=== PATIENT | male | born 1955 | race Caucasian/White ===

== ENCOUNTER 2016-05-19 | Outpatient (CLI) | payer MEDICAID | END 2016-05-19 16:02 | disposition critical access hospital (66) | CPT/HCPCS: A0425; A0429 ==

== ENCOUNTER 2016-05-19 16:28 | Emergency (ER) | payer MEDICAID ==
[2016-05-19] MEDS ORDERED: DEXAMETHASONE 10 MG/ML VIAL PO STA (17:33)
[2016-05-19] MEDS ORDERED: AZITHROMYCIN 250 MG TABLET PO STA (17:35)
[2016-05-19] MEDS ORDERED: levoFLOXacin 250 MG TABLET PO STA (17:36)
[2016-05-19] MEDS ORDERED: DEXAMETHASONE 10 MG/ML VIAL ONE (17:44)
[2016-05-19] MEDS ORDERED: CHERRY SYRUP 10 ML UDC PO ONE (17:44)
[2016-05-19] MEDS ORDERED: levoFLOXacin 250 MG TABLET PO ONE (17:44)
== END 2016-05-19 17:58 | disposition home or self-care (01) ==
DX: J18.9 Pneumonia, unspecified organism (principal); J44.9 Chronic obstructive pulmonary disease, unspecified; J45.909 Unspecified asthma, uncomplicated; I10 Essential (primary) hypertension; Z87.891 Personal history of nicotine dependence
CPT/HCPCS: 71020; 99282; 99284; A9270

== ENCOUNTER 2016-08-09 16:46 | Outpatient (CLI) | payer MEDICAID | END 2016-08-09 16:47 | disposition critical access hospital (66) | DX: R51 Headache (principal) | CPT/HCPCS: A0425; A0427 ==

== ENCOUNTER 2016-08-09 16:57 | Emergency (ER) | payer MEDICAID ==
[2016-08-09] MEDS ORDERED: HYDROmorphone 1 MG/ML SYRINGE IVP STA (17:28)
[2016-08-09] MEDS ORDERED: methylPREDNISolone SUCCINATE 125 MG/2 ML VIAL IVP STA (17:28)
[2016-08-09] MEDS ORDERED: IPRATROPIUM/ALBUTEROL 3 ML NEB INH STA (17:28)
[2016-08-09] MEDS ORDERED: IPRATROPIUM/ALBUTEROL 3 ML NEB INH ONE (17:31)
[2016-08-09] MEDS ORDERED: methylPREDNISolone SUCCINATE 125 MG/2 ML VIAL IVP ONE (17:36)
[2016-08-09] MEDS ORDERED: HYDROmorphone 1 MG/ML SYRINGE ONE (17:36)
[2016-08-09] MEDS ORDERED: LORazepam 2 MG/ML SYRINGE IVP STA (18:58)
[2016-08-09] MEDS ORDERED: LORazepam 2 MG/ML SYRINGE ONE (19:00)
[2016-08-09] MEDS ORDERED: IOPAMIDOL-300 100 ML VIAL IVP ONE (20:09)
[2016-08-09] MEDS ORDERED: AZITHROMYCIN 250 MG TABLET PO STA (21:33)
[2016-08-09] MEDS ORDERED: AZITHROMYCIN 250 MG TABLET PO ONE (21:35)
[2016-08-10] MEDS ORDERED: MAGNESIUM SULFATE 2 GRAM 50 ML IV ONE (21:30)
== END 2016-08-09 23:10 | disposition home or self-care (01) ==
DX: J44.1 Chronic obstructive pulmonary disease with (acute) exacerbation (principal); J45.909 Unspecified asthma, uncomplicated; R51 Headache; I10 Essential (primary) hypertension; B19.20 Unspecified viral hepatitis C without hepatic coma; R91.8 Other nonspecific abnormal finding of lung field; K21.9 Gastro-esophageal reflux disease without esophagitis; Z86.73 Personal history of transient ischemic attack (TIA), and cerebral infarction without residual deficits; Z87.11 Personal history of peptic ulcer disease; Z87.891 Personal history of nicotine dependence
CPT/HCPCS: 70450; 71010; 71275; 80053; 83690; 83880; 84484; 85025; 85379; 93005; 93010; 94640; 96374; 96375; 99284; 99285; A9270; J1170; J2060; J7620; Q9967

== ENCOUNTER 2016-08-10 16:06 | Outpatient (CLI) | payer MEDICAID | END 2016-08-10 16:07 | disposition critical access hospital (66) | DX: R06.9 Unspecified abnormalities of breathing (principal) | CPT/HCPCS: A0425; A0427 ==

== ENCOUNTER 2016-08-10 16:27 | Inpatient (IN) | payer MEDICAID ==
[2016-08-10] MEDS ORDERED: ALBUTEROL NEB 2.5 MG/3 ML INH STA (16:31)
[2016-08-10] MEDS ORDERED: methylPREDNISolone SUCCINATE 125 MG/2 ML VIAL IVP STA (16:31)
[2016-08-10] MEDS ORDERED: ALBUTEROL NEB 2.5 MG/3 ML INH ONE ×2 (16:39→19:14)
[2016-08-10] MEDS ORDERED: methylPREDNISolone SUCCINATE 125 MG/2 ML VIAL IVP ONE (16:45)
[2016-08-10] MEDS ORDERED: MORPHINE 10 MG/ML VIAL IVP STA (17:26)
[2016-08-10] MEDS ORDERED: ACETAMINOPHEN 325 MG TABLET PO PRN ×2 (17:27→17:36)
[2016-08-10] MEDS ORDERED: ONDANSETRON ODT 4 MG TABLET TL PRN (17:27)
[2016-08-10] MEDS ORDERED: diphenhydrAMINE 25 MG CAPSULE PO PRN (17:36)
[2016-08-10] MEDS ORDERED: MAGNESIUM HYDROXIDE 2,400 MG/30 ML UDC PO PRN (17:36)
[2016-08-10] MEDS ORDERED: PANTOPRAZOLE 40 MG TABLET PO SCH (18:00)
[2016-08-10] MEDS ORDERED: IPRATROPIUM/ALBUTEROL RESPIMAT INHALER INH SCH (18:00)
[2016-08-10] MEDS ORDERED: MORPHINE 2 MG/ML SYRINGE IVP ONE (18:30)
[2016-08-10] MEDS: IPRATROPIUM/ALBUTEROL 3 ML NEB INH SCH ×2 (18:43→23:13)
[2016-08-10] MEDS ORDERED: ALBUTEROL NEB 2.5 MG/3 ML INH PRN (19:08)
[2016-08-10] MEDS: SODIUM CHLORIDE FLUSH 0.9% 10 ML SYRINGE IVP SCH (19:10)
[2016-08-10] MEDS: SODIUM CHLORIDE 0.45% 1,000 ML IV SCH (19:10)
[2016-08-10] MEDS ORDERED: MAGNESIUM SULFATE 1 GM in SODIUM CHLORIDE 0.9% 50 ML IV SCH (19:39)
[2016-08-10] MEDS: ALBUTEROL NEB 2.5 MG/3 ML INH PRN (20:37)
[2016-08-10] MEDS ORDERED: DOXYCYCLINE INJ 100 MG in SODIUM CHLORIDE 0.9% MINIBAG 100 ML IV SCH (21:00)
[2016-08-10] MEDS: MORPHINE 2 MG/ML SYRINGE IVP PRN (21:07)
[2016-08-10] MEDS: QUEtiapine 25 MG TABLET PO SCH (21:07)
[2016-08-10] MEDS: SENNA 8.6 MG TABLET PO SCH (21:35)
[2016-08-10] MEDS: traZODone 50 MG TABLET PO SCH (21:35)
[2016-08-10] MEDS: cefTRIAXone 2 GM in SODIUM CHLORIDE 0.9% MINIBAG 100 ML IV SCH (21:35)
[2016-08-10] MEDS: GABAPENTIN 300 MG CAPSULE PO SCH (21:35)
[2016-08-10] MEDS: methylPREDNISolone SUCCINATE 125 MG/2 ML VIAL IVP SCH (21:36)
[2016-08-10] MEDS ORDERED: methylPREDNISolone SUCCINATE 40 MG/ML VIAL IVP SCH (22:00)
[2016-08-10] MEDS: LORazepam 2 MG/ML SYRINGE IVP PRN (22:36)
[2016-08-10] MEDS: AZITHROMYCIN INJ 500 MG in SODIUM CHLORIDE 0.9% 250 ML IV SCH (23:10)
[2016-08-11] MEDS: ALBUTEROL NEB 2.5 MG/3 ML INH PRN (01:31)
[2016-08-11] MEDS: MORPHINE 2 MG/ML SYRINGE IVP PRN ×4 (01:48→18:02)
[2016-08-11] MEDS: LORazepam 2 MG/ML SYRINGE IVP PRN ×4 (02:03→20:30)
[2016-08-11] MEDS: IPRATROPIUM/ALBUTEROL 3 ML NEB INH SCH ×6 (04:51→21:30)
[2016-08-11] MEDS: SODIUM CHLORIDE 0.45% 1,000 ML IV SCH ×3 (05:06→18:03)
[2016-08-11] MEDS: methylPREDNISolone SUCCINATE 125 MG/2 ML VIAL IVP SCH ×3 (06:02→22:29)
[2016-08-11] MEDS: PANTOPRAZOLE 40 MG VIAL IVP SCH (06:08)
[2016-08-11] MEDS: SENNA 8.6 MG TABLET PO SCH ×4 (06:09→21:24)
[2016-08-11] MEDS: SODIUM CHLORIDE FLUSH 0.9% 10 ML SYRINGE IVP SCH ×2 (07:48→13:59)
[2016-08-11] MEDS: ENOXAPARIN 40 MG/0.4 ML SYRINGE SUBQ SCH (08:47)
[2016-08-11] MEDS: QUEtiapine 25 MG TABLET PO SCH ×2 (08:48→21:23)
[2016-08-11] MEDS: GABAPENTIN 300 MG CAPSULE PO SCH ×3 (08:48→21:23)
[2016-08-11] MEDS: CHOLECALCIFEROL 1,000 UNIT TABLET PO SCH (08:49)
[2016-08-11] MEDS: FOLIC ACID 1 MG TABLET PO SCH (08:49)
[2016-08-11] MEDS: CETIRIZINE 10 MG TABLET PO SCH (08:50)
[2016-08-11] MEDS: MONTELUKAST 10 MG TABLET PO SCH (08:50)
[2016-08-11] MEDS: CHLORHEXIDINE GLUCONATE 15 ML UDC PO SCH ×2 (08:50→21:20)
[2016-08-11] MEDS: METOPROLOL SUCCINATE 25 MG TABLET PO SCH (08:50)
[2016-08-11] MEDS: cefTRIAXone 2 GM in SODIUM CHLORIDE 0.9% MINIBAG 100 ML IV SCH (08:51)
[2016-08-11] MEDS: POLYETHYLENE GLYCOL 3350 17 GM PACKET PO SCH (09:38)
[2016-08-11] MEDS: PARoxetine 10 MG TABLET PO SCH (09:38)
[2016-08-11] MEDS: SODIUM CHLORIDE FLUSH 0.9% 10 ML SYRINGE IVP PRN (13:59)
[2016-08-11] MEDS: AZITHROMYCIN INJ 500 MG in SODIUM CHLORIDE 0.9% 250 ML IV SCH (21:19)
[2016-08-11] MEDS: traZODone 50 MG TABLET PO SCH (21:22)
[2016-08-12] MEDS: LORazepam 2 MG/ML SYRINGE IVP PRN ×2 (00:48→04:17)
[2016-08-12] MEDS: IPRATROPIUM/ALBUTEROL 3 ML NEB INH SCH ×6 (01:30→21:30)
[2016-08-12] MEDS: SODIUM CHLORIDE FLUSH 0.9% 10 ML SYRINGE IVP SCH ×4 (01:55→21:54)
[2016-08-12] MEDS: MORPHINE 2 MG/ML SYRINGE IVP PRN ×4 (02:56→21:58)
[2016-08-12] MEDS: METHOCARBAMOL 500 MG TABLET PO PRN (04:09)
[2016-08-12] MEDS: methylPREDNISolone SUCCINATE 125 MG/2 ML VIAL IVP SCH ×2 (05:19→21:09)
[2016-08-12] MEDS: SENNA 8.6 MG TABLET PO SCH ×3 (06:35→21:54)
[2016-08-12] MEDS: PANTOPRAZOLE 40 MG VIAL IVP SCH (06:35)
[2016-08-12] MEDS: SODIUM CHLORIDE FLUSH 0.9% 10 ML SYRINGE IVP PRN (06:35)
[2016-08-12] MEDS: SODIUM CHLORIDE 0.45% 1,000 ML IV SCH ×2 (07:14→07:40)
[2016-08-12] MEDS: cefTRIAXone 2 GM in SODIUM CHLORIDE 0.9% MINIBAG 100 ML IV SCH (07:40)
[2016-08-12] MEDS: POLYETHYLENE GLYCOL 3350 17 GM PACKET PO SCH (07:41)
[2016-08-12] MEDS: ENOXAPARIN 40 MG/0.4 ML SYRINGE SUBQ SCH (07:41)
[2016-08-12] MEDS: QUEtiapine 25 MG TABLET PO SCH ×2 (07:42→21:12)
[2016-08-12] MEDS: MONTELUKAST 10 MG TABLET PO SCH (07:42)
[2016-08-12] MEDS: PARoxetine 10 MG TABLET PO SCH (07:42)
[2016-08-12] MEDS: METOPROLOL SUCCINATE 25 MG TABLET PO SCH (07:42)
[2016-08-12] MEDS: FOLIC ACID 1 MG TABLET PO SCH (07:42)
[2016-08-12] MEDS: GABAPENTIN 300 MG CAPSULE PO SCH ×3 (07:43→21:11)
[2016-08-12] MEDS: CHOLECALCIFEROL 1,000 UNIT TABLET PO SCH (07:43)
[2016-08-12] MEDS: CETIRIZINE 10 MG TABLET PO SCH (07:43)
[2016-08-12] MEDS: CHLORHEXIDINE GLUCONATE 15 ML UDC PO SCH ×2 (07:44→21:13)
[2016-08-12] MEDS ORDERED: ACETAMINOPHEN 325 MG TABLET PO PRN (17:00)
[2016-08-12] MEDS: cloNIDine 0.1 MG TABLET PO PRN (17:52)
[2016-08-12] MEDS: HYDROcod/ACETAM 5/325 MG TABLET PO PRN (17:52)
[2016-08-12] MEDS: ALPRAZolam 0.25 MG TABLET PO PRN (17:52)
[2016-08-12] MEDS: ALBUTEROL NEB 2.5 MG/3 ML INH PRN (19:30)
[2016-08-12] MEDS: AZITHROMYCIN INJ 500 MG in SODIUM CHLORIDE 0.9% 250 ML IV SCH (21:06)
[2016-08-12] MEDS: traZODone 50 MG TABLET PO SCH (21:12)
[2016-08-12] MEDS: guaiFENesin 600 MG TABLET PO SCH (21:53)
[2016-08-13] MEDS: IPRATROPIUM/ALBUTEROL 3 ML NEB INH SCH ×6 (01:30→21:30)
[2016-08-13] MEDS: HYDROcod/ACETAM 10 MG/325 MG TABLET PO PRN ×4 (03:49→19:20)
[2016-08-13] MEDS: SENNA 8.6 MG TABLET PO SCH ×3 (05:24→21:05)
[2016-08-13] MEDS: SODIUM CHLORIDE FLUSH 0.9% 10 ML SYRINGE IVP SCH ×3 (05:24→21:06)
[2016-08-13] MEDS: PANTOPRAZOLE 40 MG VIAL IVP SCH (05:25)
[2016-08-13] MEDS: MORPHINE 2 MG/ML SYRINGE IVP PRN ×2 (05:46→20:53)
[2016-08-13] MEDS: methylPREDNISolone SUCCINATE 125 MG/2 ML VIAL IVP SCH ×2 (07:47→21:04)
[2016-08-13] MEDS: MONTELUKAST 10 MG TABLET PO SCH (07:48)
[2016-08-13] MEDS: BENZONATATE 100 MG CAPSULE PO PRN (07:48)
[2016-08-13] MEDS: GABAPENTIN 300 MG CAPSULE PO SCH ×3 (07:48→21:05)
[2016-08-13] MEDS: CHOLECALCIFEROL 1,000 UNIT TABLET PO SCH (07:48)
[2016-08-13] MEDS: QUEtiapine 25 MG TABLET PO SCH ×2 (07:49→21:05)
[2016-08-13] MEDS: METOPROLOL SUCCINATE 25 MG TABLET PO SCH (07:49)
[2016-08-13] MEDS: PARoxetine 10 MG TABLET PO SCH (07:49)
[2016-08-13] MEDS: guaiFENesin 600 MG TABLET PO SCH ×2 (07:49→21:04)
[2016-08-13] MEDS: FOLIC ACID 1 MG TABLET PO SCH (07:49)
[2016-08-13] MEDS: ENOXAPARIN 40 MG/0.4 ML SYRINGE SUBQ SCH (07:50)
[2016-08-13] MEDS: ALPRAZolam 0.25 MG TABLET PO PRN (07:50)
[2016-08-13] MEDS: POLYETHYLENE GLYCOL 3350 17 GM PACKET PO SCH (07:50)
[2016-08-13] MEDS: CETIRIZINE 10 MG TABLET PO SCH (07:50)
[2016-08-13] MEDS: CHLORHEXIDINE GLUCONATE 15 ML UDC PO SCH ×2 (07:50→21:03)
[2016-08-13] MEDS: cefTRIAXone 2 GM in SODIUM CHLORIDE 0.9% MINIBAG 100 ML IV SCH (07:51)
[2016-08-13] MEDS: INSULIN ASPART 300 UNIT/3 ML PEN SUBQ SCH ×4 (09:08→20:00)
[2016-08-13] MEDS: cloNIDine 0.1 MG TABLET PO PRN (12:16)
[2016-08-13] MEDS: SODIUM CHLORIDE 0.45% 1,000 ML IV SCH (19:26)
[2016-08-13] MEDS: traZODone 50 MG TABLET PO SCH (21:06)
[2016-08-13] MEDS: AZITHROMYCIN INJ 500 MG in SODIUM CHLORIDE 0.9% 250 ML IV SCH (21:06)
[2016-08-14] MEDS: MORPHINE 2 MG/ML SYRINGE IVP PRN ×6 (00:41→22:57)
[2016-08-14] MEDS: IPRATROPIUM/ALBUTEROL 3 ML NEB INH SCH ×6 (01:30→19:17)
[2016-08-14] MEDS: BENZONATATE 100 MG CAPSULE PO PRN ×2 (03:36→19:49)
[2016-08-14] MEDS: HYDROcod/ACETAM 10 MG/325 MG TABLET PO PRN ×2 (03:40→22:49)
[2016-08-14] MEDS: SENNA 8.6 MG TABLET PO SCH ×3 (05:02→21:11)
[2016-08-14] MEDS: SODIUM CHLORIDE FLUSH 0.9% 10 ML SYRINGE IVP SCH ×3 (05:02→21:11)
[2016-08-14] MEDS: PANTOPRAZOLE 40 MG VIAL IVP SCH (06:12)
[2016-08-14] MEDS: INSULIN ASPART 300 UNIT/3 ML PEN SUBQ SCH ×4 (07:45→21:11)
[2016-08-14] MEDS: SODIUM CHLORIDE 0.45% 1,000 ML IV SCH (09:15)
[2016-08-14] MEDS: cefTRIAXone 2 GM in SODIUM CHLORIDE 0.9% MINIBAG 100 ML IV SCH (09:15)
[2016-08-14] MEDS: methylPREDNISolone SUCCINATE 125 MG/2 ML VIAL IVP SCH ×2 (09:16→21:02)
[2016-08-14] MEDS: ENOXAPARIN 40 MG/0.4 ML SYRINGE SUBQ SCH (09:18)
[2016-08-14] MEDS: MONTELUKAST 10 MG TABLET PO SCH (09:19)
[2016-08-14] MEDS: CHLORHEXIDINE GLUCONATE 15 ML UDC PO SCH ×2 (09:19→20:51)
[2016-08-14] MEDS: GABAPENTIN 300 MG CAPSULE PO SCH ×3 (09:19→21:03)
[2016-08-14] MEDS: CETIRIZINE 10 MG TABLET PO SCH (09:19)
[2016-08-14] MEDS: FOLIC ACID 1 MG TABLET PO SCH (09:19)
[2016-08-14] MEDS: QUEtiapine 25 MG TABLET PO SCH ×2 (09:19→21:03)
[2016-08-14] MEDS: guaiFENesin 600 MG TABLET PO SCH ×2 (09:19→21:03)
[2016-08-14] MEDS: CHOLECALCIFEROL 1,000 UNIT TABLET PO SCH (09:19)
[2016-08-14] MEDS: METOPROLOL SUCCINATE 25 MG TABLET PO SCH (09:19)
[2016-08-14] MEDS: POLYETHYLENE GLYCOL 3350 17 GM PACKET PO SCH (09:20)
[2016-08-14] MEDS: PARoxetine 10 MG TABLET PO SCH (09:31)
[2016-08-14] MEDS: ALPRAZolam 0.25 MG TABLET PO PRN (14:21)
[2016-08-14] MEDS: cloNIDine 0.1 MG TABLET PO PRN (14:21)
[2016-08-14] MEDS: LORazepam 2 MG/ML SYRINGE IVP PRN (19:48)
[2016-08-14] MEDS: IBUPROFEN 600 MG TABLET PO PRN (19:49)
[2016-08-14] MEDS: AZITHROMYCIN INJ 500 MG in SODIUM CHLORIDE 0.9% 250 ML IV SCH (20:57)
[2016-08-14] MEDS: traZODone 50 MG TABLET PO SCH (21:03)
[2016-08-15] MEDS: MORPHINE 2 MG/ML SYRINGE IVP PRN ×6 (00:55→16:57)
[2016-08-15] MEDS: IPRATROPIUM/ALBUTEROL 3 ML NEB INH SCH ×4 (01:16→16:54)
[2016-08-15] MEDS: SODIUM CHLORIDE FLUSH 0.9% 10 ML SYRINGE IVP SCH ×2 (05:14→14:09)
[2016-08-15] MEDS: SENNA 8.6 MG TABLET PO SCH ×2 (05:14→08:03)
[2016-08-15] MEDS: PANTOPRAZOLE 40 MG VIAL IVP SCH (05:14)
[2016-08-15] MEDS: POLYETHYLENE GLYCOL 3350 17 GM PACKET PO SCH (08:02)
[2016-08-15] MEDS ORDERED: predniSONE 20 MG TABLET PO SCH (09:00)
[2016-08-15] MEDS: INSULIN ASPART 300 UNIT/3 ML PEN SUBQ SCH ×3 (09:13→17:29)
[2016-08-15] MEDS: guaiFENesin 600 MG TABLET PO SCH (09:14)
[2016-08-15] MEDS: CETIRIZINE 10 MG TABLET PO SCH (09:14)
[2016-08-15] MEDS: METOPROLOL SUCCINATE 25 MG TABLET PO SCH (09:14)
[2016-08-15] MEDS: GABAPENTIN 300 MG CAPSULE PO SCH ×2 (09:14→14:52)
[2016-08-15] MEDS: cefTRIAXone 2 GM in SODIUM CHLORIDE 0.9% MINIBAG 100 ML IV SCH (09:14)
[2016-08-15] MEDS: METHOCARBAMOL 500 MG TABLET PO PRN (09:15)
[2016-08-15] MEDS: CHOLECALCIFEROL 1,000 UNIT TABLET PO SCH (09:15)
[2016-08-15] MEDS: FOLIC ACID 1 MG TABLET PO SCH (09:15)
[2016-08-15] MEDS: QUEtiapine 25 MG TABLET PO SCH (09:16)
[2016-08-15] MEDS: CHLORHEXIDINE GLUCONATE 15 ML UDC PO SCH (09:16)
[2016-08-15] MEDS: ENOXAPARIN 40 MG/0.4 ML SYRINGE SUBQ SCH (09:16)
[2016-08-15] MEDS ORDERED: SODIUM CHLORIDE INHALATION 3 ML NEB ONE (09:20)
[2016-08-15] MEDS: MONTELUKAST 10 MG TABLET PO SCH (09:24)
[2016-08-15] MEDS: PARoxetine 10 MG TABLET PO SCH (10:49)
[2016-08-15] MEDS: HYDROcod/ACETAM 5/325 MG TABLET PO PRN (11:07)
[2016-08-15] MEDS: ALPRAZolam 0.25 MG TABLET PO PRN ×2 (11:07→18:09)
[2016-08-15] MEDS: IBUPROFEN 600 MG TABLET PO PRN (11:07)
[2016-08-15] MEDS: SODIUM CHLORIDE 0.45% 1,000 ML IV SCH (12:31)
[2016-08-15] MEDS ORDERED: AZITHROMYCIN 250 MG TABLET PO STA (17:02)
[2016-08-15] MEDS: HYDROcod/ACETAM 10 MG/325 MG TABLET PO PRN (17:46)
[2016-08-15] MEDS: cloNIDine 0.1 MG TABLET PO PRN (18:09)
== END 2016-08-15 18:30 | disposition home or self-care (01) | DRG 189 ==
DX: J96.21 Acute and chronic respiratory failure with hypoxia (principal); J15.7 Pneumonia due to Mycoplasma pneumoniae; J44.0 Chronic obstructive pulmonary disease with (acute) lower respiratory infection; J44.1 Chronic obstructive pulmonary disease with (acute) exacerbation; E46 Unspecified protein-calorie malnutrition; Z68.1 Body mass index [BMI] 19.9 or less, adult; G93.1 Anoxic brain damage, not elsewhere classified; I10 Essential (primary) hypertension; F41.9 Anxiety disorder, unspecified; F32.9 Major depressive disorder, single episode, unspecified; K21.9 Gastro-esophageal reflux disease without esophagitis; B19.20 Unspecified viral hepatitis C without hepatic coma; G89.29 Other chronic pain; M54.9 Dorsalgia, unspecified; Z99.81 Dependence on supplemental oxygen; Z87.891 Personal history of nicotine dependence; Z79.51 Long term (current) use of inhaled steroids; Z79.899 Other long term (current) drug therapy

== ENCOUNTER 2016-08-16 18:08 | Outpatient (CLI) | payer MEDICAID | END 2016-08-16 18:09 | disposition critical access hospital (66) | DX: R53.1 Weakness (principal); R07.89 Other chest pain; R68.83 Chills (without fever) | CPT/HCPCS: A0425; A0429 ==

== ENCOUNTER 2016-08-16 18:30 | Emergency (ER) | payer MEDICAID ==
[2016-08-16] MEDS ORDERED: IPRATROPIUM/ALBUTEROL 3 ML NEB INH STA (19:34)
[2016-08-16] MEDS ORDERED: IPRATROPIUM/ALBUTEROL 3 ML NEB INH ONE (19:42)
== END 2016-08-16 22:23 | disposition home or self-care (01) ==
DX: R06.00 Dyspnea, unspecified (principal); I10 Essential (primary) hypertension; J44.9 Chronic obstructive pulmonary disease, unspecified; J45.909 Unspecified asthma, uncomplicated; Z86.73 Personal history of transient ischemic attack (TIA), and cerebral infarction without residual deficits; Z87.11 Personal history of peptic ulcer disease; B19.20 Unspecified viral hepatitis C without hepatic coma; K21.9 Gastro-esophageal reflux disease without esophagitis; Z87.891 Personal history of nicotine dependence
CPT/HCPCS: 36415; 71020; 80053; 81003; 83605; 83690; 85025; 87040; 93005; 93010; 94640; 99284; J7620

== ENCOUNTER 2016-08-18 14:16 | Outpatient (CLI) | payer MEDICAID | END 2016-08-18 23:59 | disposition critical access hospital (66) | DX: R03.0 Elevated blood-pressure reading, without diagnosis of hypertension (principal) | CPT/HCPCS: A0425; A0427 ==

== ENCOUNTER 2016-08-18 14:36 | Emergency (ER) | payer MEDICAID ==
--- NOTE | 2016-08-18 15:06 | ED Physician Documentation ---
PD HPI DYSPNEA - Stated complaint Stated Complaint: HIGH BP - Chief complaint Chief Complaint: Resp - Additional information Additional information: 60-year-old male with known past medical history of severe COPD, hypertension, brought in by EMS for shortness of breath. Of note, patient was discharged 3 days ago after a severe COPD exacerbation requiring prolonged BiPAP. There was an attempt to arrange for home BiPAP, however, patient's machine has not yet arrived. He continues to have shortness of breath, cough productive of block sputum, and sweats and subjective fevers. He denies chest pain Review of Systems Constitutional: reports: Fever, Chills, Sweats Cardiac: denies: Chest pain / pressure Respiratory: reports: Dyspnea, Cough PD PAST MEDICAL HISTORY - Past Medical History Past Medical History: Yes Cardiovascular: Hypertension Respiratory: Asthma, COPD Neuro: CVA, Head injury, Tremors, Fainting Endocrine/Autoimmune: None GI: GERD, Ulcers, Hepatitis : Retention HEENT: None Psych: Depression, Anxiety, Bipolar disorder Musculoskeletal: Chronic back pain Derm: None - Past Surgical History Past Surgical History: Yes - Present Medications Home Medications: Ambulatory Orders Medication Instructions Recorded Confirmed Ipratropium/Albuterol [Combivent 1 puffs INH QID 11/28/14 08/16/16 Respimat] PARoxetine [Paxil] 40 mg PO DAILY 11/28/14 08/16/16 Quetiapine Fumarate [Seroquel] 50 mg PO BID 11/28/14 08/16/16 raNITIdine [Zantac] 150 mg PO BID 11/28/14 08/16/16 traZODone [Desyrel] 150 mg PO QPM 11/28/14 08/16/16 Albuterol [Ventolin Hfa] 2 puffs INH Q4HR PRN 06/07/15 08/16/16 Ibuprofen [Advil] 600 mg PO Q6HR PRN 06/07/15 08/16/16 Metoprolol Succinate 25 mg PO DAILY 06/07/15 08/16/16 Montelukast [Singulair] 10 mg PO DAILY 06/07/15 08/16/16 Gabapentin 300 mg PO 0900,1400,2200 01/11/16 08/16/16 Methocarbamol 500 mg PO BID PRN 01/11/16 08/16/16 Cetirizine [ZyrTEC] 10 mg PO DAILY 08/10/16 08/16/16 guaiFENesin [Mucinex] 600 mg PO BID #14 tablet 08/15/16 08/16/16 predniSONE [Deltasone] 40 mg PO DAILYWM #14 tablet 08/15/16 08/16/16 Azithromycin [Zithromax] 250 mg PO DAILY 08/16/16 08/16/16 Benzonatate 100 mg PO TID 08/16/16 08/16/16 Budesonide/Formoterol Fumarate 2 puffs INH DAILY 08/16/16 08/16/16 [Symbicort 160-4.5 Mcg Inhaler] Ergocalciferol (Vitamin D2) 2,000 unit PO DAILY 08/16/16 08/16/16 [Ergocalciferol] Folic Acid 1 mg PO DAILY 08/16/16 08/16/16 diphenhydrAMINE [Benadryl] 25 mg PO Q8H 08/16/16 08/16/16 - Allergies Allergies/Adverse Reactions: Allergies Allergy/AdvReac Type Severity Reaction Status Date / Time aspirin Allergy Unknown Verified 08/16/16 18:34 nitroglycerin Allergy Unknown Verified 08/16/16 18:34 Phenothiazines Allergy Unknown Verified 08/16/16 18:34 - Social History Does the pt smoke?: No Smoking Status: Former smoker Does the pt drink ETOH?: No Does the pt have substance abuse?: No - Immunizations Immunizations are current?: Yes - POLST Patient has POLST: Yes PD ED PE NORMAL - Vitals Vital signs reviewed: Yes - General General: Alert and oriented X 3, No acute distress, Other (Chronically ill- appearing, diaphoretic) - HEENT HEENT: PERRL - Neck Neck: Supple, no meningeal sign - Cardiac Cardiac: RRR, No murmur - Respiratory Respiratory: Other (Diffusely coarse bilaterally) - Abdomen Abdomen: Normal bowel sounds, Soft, Non tender, Non distended - Derm Derm: Other (Warm and diaphoretic) - Extremities Extremities: No deformity - Neuro Neuro: Alert and oriented X 3 - Psych Psych: Normal mood, Normal affect Results - Vitals Vitals: Vital Signs - 24 hr 08/18/16 08/18/16 08/18/16 14:38 16:11 17:46 Temperature 37.2 C 36.9 C 37.1 C Heart Rate 103 H 90 88 Respiratory 30 H 28 H 24 Rate Blood Pressure 175/93 H 157/95 H 165/91 H O2 Saturation 94 97 100 Oxygen O2 Source Nasal cannula Oxygen Flow Rate 2 - EKG (time done) 1546 Rhythm: NSR (93) Ischemia: Normal ST segments, T wave inversion (avr, v1) - Labs Labs: Microbiology 08/18/16 15:01 Respiratory Culture - Preliminary Sputum Laboratory Tests 08/18/16 08/18/16 08/18/16 14:48 15:01 15:01 WBC 10.5 RBC 4.61 L Hgb 14.9 Hct 44.0 MCV 95.3 H MCH 32.3 H MCHC 33.9 RDW 12.6 Plt Count 347 MPV 7.2 L Neut # 7.7 H Lymph # 1.4 L Ford # 1.3 H Eos # 0.0 Baso # 0.0 Absolute Nucleated RBC 0.00 Nucleated RBCs 0.0 Sodium 138 Potassium 3.6 Chloride 94 L Carbon Dioxide 32 Anion Gap 12.0 BUN 37 H Creatinine 1.0 Estimated GFR (MDRD) 76 L Glucose 128 H Calcium 9.6 Total Bilirubin 0.7 AST 26 ALT 30 Alkaline Phosphatase 54 Troponin I B-Natriuretic Peptide 55 Total Protein 7.5 Albumin 4.2 Globulin 3.3 Albumin/Globulin Ratio 1.3 Lipase 56 H Urine Color Urine Clarity Urine pH Ur Specific Hecker Urine Protein Urine Glucose (UA) Urine Ketones Urine Occult Blood Urine Nitrite Urine Bilirubin Urine Urobilinogen Ur Leukocyte Esterase Ur Microscopic Review Urine Culture Comments 08/18/16 08/18/16 15:01 15:05 WBC RBC Hgb Hct MCV MCH MCHC RDW Plt Count MPV Neut # Lymph # Ford # Eos # Baso # Absolute Nucleated RBC Nucleated RBCs Sodium Potassium Chloride Carbon Dioxide Anion Gap BUN Creatinine Estimated GFR (MDRD) Glucose Calcium Total Bilirubin AST ALT Alkaline Phosphatase Troponin I < 0.04 B-Natriuretic Peptide Total Protein Albumin Globulin Albumin/Globulin Ratio Lipase Urine Color YELLOW Urine Clarity CLEAR Urine pH 6.5 Ur Specific Hecker 1.020 Urine Protein NEGATIVE Urine Glucose (UA) NEGATIVE Urine Ketones NEGATIVE Urine Occult Blood NEGATIVE Urine Nitrite NEGATIVE Urine Bilirubin NEGATIVE Urine Urobilinogen 0.2 (NORMAL) Ur Leukocyte Esterase NEGATIVE Ur Microscopic Review NOT INDICATED Urine Culture Comments NOT INDICATED - Rads (name of study) cxr Radiology: EMP read contemporaneously, See rad report (MPRESSION: Stable radiographic appearance of the chest. Lungs are well expanded. No evidence of acute infiltrate or pneumothorax. ) PD MEDICAL DECISION MAKING - ED course Complexity details: reviewed results, re-evaluated patient, considered differential, d/w patient ED course: 60-year-old male who is well-known to this facility brought in by EMS for shortness of breath. Patient has been here 3 times the last 4 days for similar. He was recently discharged from this hospital with COPD exacerbation. Differential diagnosis includes but is not limited to moderate versus severe COPD exacerbation versus pneumonia versus pleural effusion. Patient's chest x- ray is unchanged from prior. His ABG did not show any signs of COPD exacerbation. CBC and CMP are at patient's baseline. Patient has been anxiety disorder, and much of his shortness of breath, I believe, originates with anxiety. He is aware and amenable to discharge at this time with followup with his primary care physician. This document was made in part using voice recognition software. While efforts are made to proofread this document, sound alike and grammatical errors may occur. Departure - Departure Disposition: 01 Home, Self Care Clinical Impression: Moderate COPD (chronic obstructive pulmonary disease), Anxiety Condition: Stable Instructions: ED Stress React Follow-Up: Kael Maurice MD [Primary Care Provider] - Within 1 week Comments: Please continue to take your medicines as prescribed. Return to the ER for any fevers, chills, chest pain, shortness of breath, or for any other medical emergency.Your blood pressure was elevated today on check in to the emergency department. This does not mean that you have hypertension, it is a common phenomenon to check into the emergency department and have elevated blood pressure. I recommend that you see your primary care physician within the week to have it rechecked when you're feeling better. Discharge Date/Time: 08/18/16 18:13
[2016-08-18 15:17] LABS: BASOPHILS % (AUTO) 0.2 %; EOSINOPHILS % (AUTO) 0.3 %; HGB - HEMOGLOBIN 14.9 g/dL (14.0-18.0); LYMPHOCYTES # (AUTO) 1.4 10^3/uL (1.5-3.5); LYMPHOCYTES % (AUTO) 13.5 %; MEAN CORPUSCULAR HEMOGLOBIN 32.3 pg (27.0-31.0); MEAN CORPUSCULAR HGB CONC 33.9 g/dL (32.0-36.0); MEAN CORPUSCULAR VOLUME 95.3 fL (80.0-94.0); MEAN PLATELET VOLUME 7.2 fL (7.4-11.4); MONOCYTES # (AUTO) 1.3 10^3/uL (0.0-1.0); MONOCYTES % (AUTO) 12.9 %; NEUTROPHILS # (AUTO) 7.7 10^3/uL (1.5-6.6); NEUTROPHILS % (AUTO) 73.1 %; RED BLOOD COUNT 4.61 10^6/uL (4.70-6.10); RED CELL DISTRIBUTION WIDTH 12.6 % (12.0-15.0); UNCORRECTED WHITE BLOOD COUNT 10.5 x10^3/uL; WHITE BLOOD COUNT 10.5 x10^3/uL (4.8-10.8)
[2016-08-18 15:25] LABS: ALBUMIN/GLOBULIN RATIO 1.3 (1.0-2.2); BILIRUBIN,TOTAL 0.7 mg/dL (0.2-1.0); CALCIUM 9.6 mg/dL (8.5-10.3); POTASSIUM 3.6 mmol/L (3.5-5.0); TOTAL PROTEIN 7.5 g/dL (6.7-8.2)
[2016-08-18] MEDS: SODIUM CHLORIDE 0.9% 1,000 ML IV ONE (16:11)
--- NOTE | 2016-08-18 17:08 | XRAY Preliminary Report ---
Exam: XR Chest 2 View PA/LAT IMPRESSION: Stable radiographic appearance of the chest. Lungs are well expanded. No evidence of acut e infiltrate or pneumothorax. [facility] SITE ID: [id number]
--- NOTE | 2016-08-18 17:11 | XRAY Report ---
EXAM: CHEST RADIOGRAPHY EXAM DATE: 08/18/2016 04:50 PM. CLINICAL HISTORY: Shortness of breath. COMPARISON: Numerous priors, most recently 08/16/2016. TECHNIQUE: 2 views. FINDINGS: Lungs/Pleura: Lungs are well expanded. There is stable reticular opacity within the posterior chest o n lateral view. No clearly new areas of airspace disease are seen. Costophrenic sulcus blunting may r epresent small effusion or pleural thickening. No pneumothorax. Mediastinum: Heart and mediastinal contours are unremarkable. Other: None. IMPRESSION: Stable radiographic appearance of the chest. Lungs are well expanded. No evidence of acut e infiltrate or pneumothorax. [facility] Referring Provider Line: [phone] SITE ID: [id number]
[2016-08-18 17:13] LABS: BILIRUBIN,URINE NEGATIVE (NEGATIVE); PH,URINE 6.5 PH (5.0-7.5)
[2016-08-18 17:14] LABS: UA CHARGE (STRIP ONLY) YES; UR CULTURE IF IND NOT INDICATED
[2016-08-18] MEDS ORDERED: ACETAMINOPHEN 325 MG TABLET PO ONE (17:33)
[2016-08-18] MEDS: ACETAMINOPHEN 325 MG TABLET PO STA (17:34)
[2016-08-18 17:48] VITALS: BP 165/91
[2016-08-18 23:14] LABS: ABG ANALYSIS TIME 1545; ABG BASE EXCESS 8.9 mmol/L (-2.0-3.0); ABG OXYGEN SATURATION 92 % (94-98); ABG PCO2 47 mmHg (34-45); ABG PH 7.47 (7.35-7.45); ABG PO2 61 mmHg (80-100); ABG SITE OF DRAW LEFT RADIAL; ABG TCO2 35.4 MMOL/L (21.0-29.0); ALLEN TEST POSITIVE
[2016-08-18 23:15] LABS: ABG ROOM AIR YES
== END 2016-08-18 18:13 | disposition home or self-care (01) ==
LOC: EDUNIT# → SUPCPDRO 14:36 → ED 14:36
DX: J44.9 Chronic obstructive pulmonary disease, unspecified (principal); I10 Essential (primary) hypertension; J45.909 Unspecified asthma, uncomplicated; K21.9 Gastro-esophageal reflux disease without esophagitis; F41.9 Anxiety disorder, unspecified; Z87.11 Personal history of peptic ulcer disease; Z87.891 Personal history of nicotine dependence
CPT/HCPCS: 36415; 36600; 71020; 80053; 81001; 81003; 82803; 83690; 83880; 84484; 85025; 87040; 87070; 87077; 87086; 87205; 93005; 93010; 99284

== ENCOUNTER 2016-11-20 10:10 | Outpatient (CLI) | payer MEDICAID ==
--- NOTE | 2016-11-22 11:03 | XRAY Report ---
TWO VIEW CHEST: 11/20/2016 CLINICAL INDICATION: COPD. COMPARISON: 08/18/2016. FINDINGS: Frontal and lateral views of the chest demonstrate a normal cardiac silhouette. The lungs remain hyperinflated. There is a new parenchymal opacity at the left base, suspicious for a small infiltrate. No effusion or pneumothorax is evident. IMPRESSION: SMALL PARENCHYMAL OPACITY AT THE LEFT BASE, SUSPICIOUS FOR A SMALL INFILTRATE. MTDD
== END 2016-11-20 10:11 | disposition home or self-care (01) ==
LOC: DI.N 10:10
PROVIDERS: ATTEND Physician Assistant
DX: R91.8 Other nonspecific abnormal finding of lung field (principal); J44.1 Chronic obstructive pulmonary disease with (acute) exacerbation
CPT/HCPCS: 71020

== ENCOUNTER 2016-11-30 09:56 | Outpatient (CLI) | payer MEDICAID ==
--- NOTE | 2016-11-30 16:18 | XRAY Report ---
TWO-VIEW CHEST: 11/30/2016 CLINICAL INDICATION: Pneumonia. FINDINGS: Frontal and lateral views of the chest demonstrate a normal cardiac silhouette. The lungs remain hyperinflated, with emphysematous changes. Small parenchymal opacity at the left base is unc hanged. No effusion or pneumothorax is seen. IMPRESSION: PERSISTENT SMALL PARENCHYMAL OPACITY AT THE LEFT BASE. CONSIDER CHEST CT TO EXCLUDE A S USPICIOUS PULMONARY NODULE. JOB #: [id number] EXT JOB #:[id number]
== END 2016-11-30 09:57 | disposition home or self-care (01) ==
LOC: DI.N 09:56
PROVIDERS: ATTEND Physician Assistant
DX: J44.1 Chronic obstructive pulmonary disease with (acute) exacerbation (principal)
CPT/HCPCS: 71020

== ENCOUNTER 2016-12-05 21:07 | Outpatient (CLI) | payer MEDICAID ==
[2016-12-05 13:18] LABS: ALBUMIN/GLOBULIN RATIO 1.7 (1.0-2.2); BILIRUBIN,TOTAL 0.6 mg/dL (0.2-1.0); CALCIUM 9.1 mg/dL (8.5-10.3); POTASSIUM 3.8 mmol/L (3.5-5.0); TOTAL PROTEIN 6.9 g/dL (6.7-8.2)
== END 2016-12-05 21:08 | disposition home or self-care (01) ==
LOC: LAB.N 21:07
PROVIDERS: ATTEND Physician Assistant
DX: J44.1 Chronic obstructive pulmonary disease with (acute) exacerbation (principal)
CPT/HCPCS: 36415; 80053

== ENCOUNTER 2016-12-14 14:24 | Outpatient (CLI) | payer MEDICAID ==
[2016-12-14] MEDS ORDERED: IOPAMIDOL-300 100 ML VIAL IVP ONE (15:36)
--- NOTE | 2016-12-15 11:21 | CT Report ---
CT CHEST WITH CONTRAST: 12/14/2016 CLINICAL INDICATION: COPD exacerbation. COMPARISON: 07/30/2016, chest x-ray 11/30/2016. TECHNIQUE: Axial CT images of the chest were obtained with 80 mL Isovue-[address] intravenously. In accordance with CT protocol optimization, one or more of the following dose reduction techniques w ere utilized for this exam: automated exposure control, adjustment of mA and/or KV based on patient size, or use of iterative reconstructive technique. FINDINGS: The heart and great vessels demonstrate mild atherosclerotic calcifications. No hilar or mediastinal lymphadenopathy is present. The previously seen left basilar parenchymal opacity has res olved. Extensive emphysema is present, with mild bronchiectasis. No new infiltrate is seen. No pul monary nodule or mass lesion is appreciated. No effusion or pneumothorax is present. Limited evalua tion of upper abdominal structures demonstrates stable left adrenal fullness. Osseous structures dem onstrate degenerative changes. IMPRESSION: EXTENSIVE EMPHYSEMA WITH MILD BRONCHIECTASIS. RESOLUTION OF PREVIOUSLY NOTED LEFT BASIL AR OPACITY. JOB #: [id number] EXT JOB #:[id number]
== END 2016-12-14 14:25 | disposition home or self-care (01) ==
LOC: DI 14:24
PROVIDERS: ATTEND Physician Assistant
DX: J43.9 Emphysema, unspecified (principal); J47.9 Bronchiectasis, uncomplicated
CPT/HCPCS: 71260; Q9967